=== PATIENT | male | born 1990 | race Caucasian/White ===

== ENCOUNTER 2022-09-12 15:47 | Emergency (ER) | payer OTHER ==
[~2022-09-12] VITALS: Ht 167.6 cm; Wt 93.0 kg
[2022-09-12] MEDS ORDERED: CHLORPROMAZINE25 MG PO (16:19)
--- NOTE | 2022-09-13 07:17 | EKG ---
[facility] [address] [facility] [place], [place] [address] Signed Sinus tachycardia Otherwise normal ECG When compared with ECG of 12-SEP-2022 15:55, (Unconfirmed) No significant change was found Confirmed by LONNIE AQUINO MD ([id number] on 09/13/2022 7:17:17 AM Electronically Signed By: LONNIE AQUINO MD 09/13/22 0717 PATIENT NAME: GENA VICENTE Electrocardiogram DATE OF : 86 PHYSICIAN: LONNIE AQUINO MD REPORT #: [id number] REPORT IS CONFIDENTIAL AND NOT TO BE RELEASED WITHOUT AUTHORIZATION
== END 2022-09-12 17:20 | disposition home or self-care (01) ==
LOC: ED 15:47
DX: N50.819 Testicular pain, unspecified (principal); F41.9 Anxiety disorder, unspecified; R00.0 Tachycardia, unspecified; Z79.899 Other long term (current) drug therapy
CPT/HCPCS: 36415; 80053; 85025; 93005; 93010; 96374; 99284-25; J1885